=== PATIENT | male | born 1970 | race Two or more races ===

== ENCOUNTER 2018-10-06 15:36 | Emergency (ER) | payer OTHER ==
[~2018-10-06] VITALS: Ht 172.7 cm; Wt 106.6 kg
[2018-10-06 15:44] VITALS: Ht 172.7 cm; Wt 106.6 kg
[2018-10-06 16:40] LABS: microscopic required? YES; urine erythrocyte TRACE (NEGATIVE)
[2018-10-06 16:48] LABS: BASOPHIL % 0.3 % (0-2); PLATELET COUNT 270 x10^3mcL (130-400); RED CELL DISTRIBUTION WIDTH 12.9 % (11.5-14.5)
[2018-10-06 16:52] LABS: CALCIUM 9.1 mg/dL (8.5-10.1); CARBON DIOXIDE 30.7 mmol/L (21-32); CHLORIDE SERUM 98 mmol/L (98-107); CREATININE SERUM 0.9 mg/dL (0.7-1.3); GFR1 > 60 mL/min; GLUCOSE SERUM 89 mg/dL (74-106); POTASSIUM SERUM 3.5 mmol/L (3.5-5.1); SODIUM SERUM 138 mmol/L (136-145)
[2018-10-06 16:57] LABS: ALBUMIN 4.4 g/dL (3.4-5.0); ALKALINE PHOSPHATASE 77 U/L (46-116); ALT/SGPT 82 U/L (16-63); AST/SGOT 39 U/L (15-37); BILIRUBIN TOTAL 0.61 mg/dL (0.20-1.00); CHOLESTEROL 225 mg/dL (<200); CHOLESTEROL/HDL RATIO 6.6; HDL CHOLESTEROL 34 mg/dL (40-60); LIPASE 114 IU/L (73-393); TOTAL PROTEIN, SERUM 8.6 g/dL (6.4-8.2); TRIGLYCERIDES 291 mg/dL (<150)
[2018-10-06 18:29] VITALS: BP 144/79
== END 2018-10-06 18:29 | disposition home or self-care (01) ==
LOC: EDSEX 15:36 → ED 15:36
PROVIDERS: Emergency Medicine
DX: R07.89 Other chest pain (principal); R10.32 Left lower quadrant pain; M79.604 Pain in right leg; I10 Essential (primary) hypertension; E78.00 Pure hypercholesterolemia, unspecified
CPT/HCPCS: 36415; J7030

== ENCOUNTER 2019-05-12 14:29 | Emergency (ER) | payer OTHER ==
[~2019-05-12] VITALS: Ht 172.7 cm; Wt 109.3 kg
[2019-05-12 15:12] VITALS: Ht 172.7 cm; Wt 109.3 kg
[2019-05-12 16:20] LABS: BASOPHIL % 0.6 % (0-2); PLATELET COUNT 340 x10^3mcL (130-400)
[2019-05-12 16:21] LABS: CALCIUM 9.1 mg/dL (8.5-10.1); CARBON DIOXIDE 26.8 mmol/L (21-32); CHLORIDE SERUM 104 mmol/L (98-107); CREATININE SERUM 0.7 mg/dL (0.7-1.3); GFR1 > 60 mL/min; GLUCOSE SERUM 106 mg/dL (74-106); POTASSIUM SERUM 4.1 mmol/L (3.5-5.1); SODIUM SERUM 140 mmol/L (136-145)
[2019-05-12 16:26] LABS: ALKALINE PHOSPHATASE 64 U/L (46-116); ALT/SGPT 77 U/L (16-63); AST/SGOT 42 U/L (15-37); BILIRUBIN TOTAL 0.4 mg/dL (0.20-1.00); TOTAL PROTEIN, SERUM 7.5 g/dL (6.4-8.2)
[2019-05-12 18:18] VITALS: BP 152/78
== END 2019-05-12 18:15 | disposition home or self-care (01) ==
LOC: ED 14:29
PROVIDERS: Emergency Medicine
DX: H81.10 Benign paroxysmal vertigo, unspecified ear (principal)
CPT/HCPCS: J0780; J2405; J7030; J8597